=== PATIENT | male | born 1945 | race Caucasian/White ===

== ENCOUNTER 2017-08-18 10:22 | Observation (INO) | payer MEDICARE, MEDICAID ==
--- NOTE | 2017-08-18 10:36 | ER Document Report ---
ED General - General Chief Complaint: Low Blood Pressure Stated Complaint: BLOOD PRESSURE CONCERNS Time Seen by Provider: 08/18/17 10:35 TRAVEL OUTSIDE OF THE [place] IN LAST 30 DAYS: No - HPI Patient complains to provider of: syncope Notes: Old man presents after episode of syncope this morning at his doctor's office. Patient woke up this morning and had the sensation he was going to "pass out" and he was unable to get his vision to focus well in the morning. Patient took a shower felt unsteady was able to shave but still felt very "strange". Patient attempted to drive to his doctor's office but his vision Coming in and out while he was driving. Patient contacted his sister attempting to get a ride. Patient ended up driving slowly stopping periodically and did get to his physician's office. Patient stood up attempted to walk in to his physician's office and he had a syncopal event. Patient found to have systolic blood pressure approximately 60 prehospital. Patient is a small abrasion on his forehead but denies any other pain at this time. Patient states he feels fine at rest. He is not sure if he took too much of his blood pressure medication this morning or what is going on. Denies all other symptoms - Related Data Allergies/Adverse Reactions: No Known Allergies Allergy (Verified 08/18/17 10:34) Past Medical History - Social History Smoking Status: Unknown if Ever Smoked Family History: None - Past Medical History Cardiac Medical History: Reports: Hx Hypertension Pulmonary Medical History: Reports: Hx Pneumonia - possible Musculoskeletal Medical History: Reports Hx Arthritis Psychiatric Medical History: Reports: Hx Depression Past Surgical History: Denies: Hx Pacemaker Review of Systems - Review of Systems Notes: REVIEW OF SYSTEMS: CONSTITUTIONAL: -fevers, -chills EENT: -eye pain, -difficulty swallowing, -nasal congestion CARDIOVASCULAR: -chest pain, -syncope. RESPIRATORY: -cough, -SOB GASTROINTESTINAL: -abdominal pain, -nausea, -vomiting, -diarrhea GENITOURINARY: -dysuria, -hematuria MUSCULOSKELETAL: -back pain, -neck pain SKIN: -rash or skin lesions. HEMATOLOGIC: -easy bruising or bleeding. LYMPHATIC: -swollen, enlarged glands. NEUROLOGICAL: -altered mental status or loss of consciousness, -headache, - neurologic symptoms PSYCHIATRIC: -anxiety, -depression. ALL OTHER SYSTEMS REVIEWED AND NEGATIVE. Physical Exam - Vital signs Vitals: Resp BP Pulse Ox 12 102/67 93 08/18/17 10:29 08/18/17 10:29 08/18/17 10:29 - Notes Notes: PHYSICAL EXAMINATION: GENERAL: Well-appearing, well-nourished and in no acute distress. HEAD: Atraumatic, normocephalic. EYES: Pupils equal round and reactive to light, extraocular movements intact, sclera anicteric, conjunctiva are normal. ENT: nares patent, oropharynx clear without exudates. Moist mucous membranes. NECK: Normal range of motion, supple without lymphadenopathy LUNGS: Breath sounds clear to auscultation bilaterally and equal. No wheezes rales or rhonchi. HEART: Regular rate and rhythm without murmurs ABDOMEN: Soft, nontender, normoactive bowel sounds. No guarding, no rebound. No masses appreciated. EXTREMITIES: Normal range of motion, no pitting or edema. No cyanosis. NEUROLOGICAL: Cranial nerves grossly intact. Normal speech, normal gait. Normal sensory and motor exams. PSYCH: Normal mood, normal affect. SKIN: Small abrasion left aspect frontal bone Course - Re-evaluation Re-evalutation: 08/18/17 10:43 Elderly man presents with hypotension and syncope prehospital. EKG unremarkable at this time. Will initiate multiple lab workup, imaging CT head and chest x-ray. 08/18/17 11:44 Patient's CAT scan unremarkable, chest x-ray unremarkable extensive lab workup unremarkable EKG is no ischemic changes. Patient has no complaints at this time given fluid resuscitation. Patient still borderline hypotension systolic 96. Patient will be admitted to the hospital for definitive management and close monitoring including telemetry. - Vital Signs Vital signs: Temp Pulse Resp BP Pulse Ox 97.9 F 12 89/60 L 93 08/18/17 10:34 08/18/17 11:31 08/18/17 11:31 08/18/17 11:31 - Laboratory Result Diagrams: 08/18/17 10:06 08/18/17 10:06 Laboratory results interpreted by me: 08/18/17 08/18/17 10:06 10:06 WBC 13.7 H Seg Neutrophils % 79.2 H Absolute Neutrophils 10.9 H BUN 36 H Creatinine 2.83 H Est GFR ( Amer) 27 L Est GFR (Non-Af Amer) 22 L Glucose 153 H Direct Bilirubin 0.5 H - EKG Interpretation by Me Additional EKG results interpreted by me: 08/18/17 11:44 Normal sinus rhythm, no ST elevation, no ST depression, no pathologic T-wave inversions. Discharge - Discharge Clinical Impression: Syncope and collapse Hypotension Qualifiers: Hypotension type: unspecified hypotension type Qualified Code(s): I95.9 - Hypotension, unspecified Fall Qualifiers: Encounter type: initial encounter Qualified Code(s): W19.XXXA - Unspecified fall, initial encounter Admitting Provider: Hospitalist - Dr. Kandice Huitron Unit Admitted: Telemetry Referrals: RHONDA PERLA DO [Primary Care Provider] - Follow up as needed
[2017-08-18] MEDS ORDERED: NORMAL SALINE 1000 ML 1,000 ML IV ONE (10:40)
[2017-08-18 10:53] LABS: ABSOLUTE BASOPHILS # (AUTO) 0.1 10^3/uL (0.0-0.2); ABSOLUTE EOSINOPHILS # (AUTO) 0.2 10^3/uL (0.0-0.6); ABSOLUTE LYMPHOCYTES (AUTO) 1.9 10^3/uL (0.5-4.7); ABSOLUTE MONOCYTES (AUTO) 0.7 10^3/uL (0.1-1.4); ABSOLUTE NEUT (AUTO) 10.9 10^3/uL (1.7-8.2); BASOPHILS % (AUTO) 0.4 % (0-2); EOSINOPHILS % (AUTO) 1.4 % (0-6); HEMATOCRIT 39.9 % (37.9-51.0); HEMOGLOBIN 13.5 g/dL (13.5-17.0); LYMPHOCYTES % (AUTO) 13.7 % (13-45); MEAN CORPUSCULAR HEMOGLOBIN 30.5 pg (27.0-33.4); MEAN CORPUSCULAR HGB CONC 33.9 g/dL (32.0-36.0); MEAN CORPUSCULAR VOLUME 90 fl (80-97); MONOCYTES % (AUTO) 5.3 % (3-13); PLATELET COUNT 252 10^3/uL (150-450); RED BLOOD COUNT 4.44 10^6/uL (4.35-5.55); RED CELL DISTRIBUTION WIDTH 12.8 % (11.5-14.0); SEGMENTED NEUTROPHILS % (AUTO) 79.2 % (42-78); TOTAL CELLS COUNTED % (AUTO) 100 %; WHITE BLOOD COUNT 13.7 10^3/uL (4.0-10.5)
[2017-08-18 11:08] LABS: ALANINE AMINOTRANSFERASE 24 U/L (21-72); ALBUMIN 4.2 g/dL (3.5-5.0); ALKALINE PHOSPHATASE 84 U/L (38-126); ANION GAP 15 (5-19); ASPARTATE AMINO TRANSFERASE 31 U/L (17-59); BILIRUBIN,DIRECT 0.5 mg/dL (0.0-0.4); BILIRUBIN,TOTAL 0.8 mg/dL (0.2-1.3); BLOOD UREA NITROGEN 36 mg/dL (7-20); CALCIUM 9.7 mg/dL (8.4-10.2); CARBON DIOXIDE 26 mmol/L (22-30); CHLORIDE 102 mmol/L (98-107); GLUCOSE 153 mg/dL (75-110); POTASSIUM 4.3 mmol/L (3.6-5.0); SODIUM 143.2 mmol/L (137-145); TOTAL PROTEIN 7.5 g/dL (6.3-8.2)
--- NOTE | 2017-08-18 11:14 | RADIOLOGY REPORT (SQ) ---
EXAM DESCRIPTION: CT HEAD WITHOUT COMPLETED DATE/TIME: 08/18/2017 10:57 am REASON FOR STUDY: trauma COMPARISON: December 2011 TECHNIQUE: Axial images acquired through the brain without intravenous contrast. Images reviewed wi th bone, brain and subdural windows. Additional sagittal and coronal reconstructions were generated. Images stored on PACS. All CT scanners at this facility use dose modulation, iterative reconstruction, and/or weight based d osing when appropriate to reduce radiation dose to as low as reasonably achievable (ALARA). [facility]: Dose Right [facility]: CareDose [facility]: Dose Right [facility]: Teradose 4D [facility]: [employer] RADIATION DOSE: CT Rad equipment meets quality standard of care and radiation dose reduction techniq ues were employed. CTDIvol: 53.2 mGy. DLP: 1044 mGy-cm. mGy. LIMITATIONS: None. FINDINGS: VENTRICLES: Normal size and contour. CEREBRUM: No masses. No hemorrhage. No midline shift. No evidence for acute infarction. Normal gra y/white matter differentiation. No areas of low density in the white matter. CEREBELLUM: No masses. No hemorrhage. No alteration of density. No evidence for acute infarction. EXTRAAXIAL SPACES: No fluid collections. No masses. ORBITS AND GLOBE: No intra- or extraconal masses. Normal contour of globe without masses. CALVARIUM: No fracture. PARANASAL SINUSES: No fluid or mucosal thickening. SOFT TISSUES: No mass or hematoma. OTHER: No other significant finding. IMPRESSION: No significant intracranial abnormalities were identified. Findings as noted above EVIDENCE OF ACUTE STROKE: NO. COMMENT: Quality ID # [id number]: Final reports with documentation of one or more dose reduction techniques (e.g., Automated exposure control, adjustment of the mA and/or kV according to patient size, use of iterative reconstruction technique) TECHNICAL DOCUMENTATION: JOB ID: [id number] [email or web address]- All Rights Reserved Reading location - IP/workstation name: [email or web address]
--- NOTE | 2017-08-18 11:47 | RADIOLOGY REPORT (SQ) ---
EXAM DESCRIPTION: CHEST SINGLE VIEW COMPLETED DATE/TIME: 08/18/2017 11:30 am REASON FOR STUDY: syncope COMPARISON: August 2007 EXAM PARAMETERS: NUMBER OF VIEWS: One view. TECHNIQUE: Single frontal radiographic view of the chest acquired. RADIATION DOSE: NA LIMITATIONS: None. FINDINGS: LUNGS AND PLEURA: No opacities, masses or pneumothorax. No pleural effusion. MEDIASTINUM AND HILAR STRUCTURES: No masses. Contour normal. HEART AND VASCULAR STRUCTURES: Heart normal in size. Normal vasculature. BONES: No acute findings. HARDWARE: None in the chest. OTHER: No other significant finding. IMPRESSION: NO ACUTE RADIOGRAPHIC FINDING IN THE CHEST. TECHNICAL DOCUMENTATION: JOB ID: [id number] [email or web address]- All Rights Reserved Reading location - IP/workstation name: [email or web address]
[2017-08-18] MEDS ORDERED: ACETAMINOPHEN 325 MG TABLET PO PRN (12:29)
[2017-08-18] MEDS ORDERED: RINGERS SOLUTION,LACTATED 1,000 ML IV PRN (12:29)
[2017-08-18] MEDS ORDERED: HYDROCODONE/ACETAMINOPHEN 10-325 MG TABLET PO PRN (12:40)
[2017-08-18] MEDS ORDERED: (PENDING PHARMACY ID) (Alprazolam [Xanax 1 Mg Tablet] 1 MG) PO SCH (14:00)
[2017-08-18] MEDS: ALPRAZOLAM 0.5 MG TABLET PO SCH ×2 (15:51→21:39)
[2017-08-18 15:57] LABS: APPEARANCE,URINE CLEAR; BILIRUBIN,URINE NEGATIVE (NEGATIVE); COLOR,URINE YELLOW; GLUCOSE, URINE NEGATIVE (NEGATIVE); KETONES,URINE NEGATIVE (NEGATIVE); LEUKOCYTE ESTERASE,URINE NEGATIVE (NEGATIVE); NITRITE,URINE NEGATIVE (NEGATIVE); PROTEIN,URINE NEGATIVE (NEGATIVE); URINE SPECIFIC GRAVITY 1.011; UROBILINOGEN,URINE NEGATIVE mg/dL (<2.0)
[2017-08-18] MEDS: RINGERS SOLUTION,LACTATED 1,000 ML IV PRN (16:33)
--- NOTE | 2017-08-18 18:48 | PDOC H&P ---
History of Present Illness Admission Date/PCP: 08/18/17 13:16 RHONDA PERLA DO Patient complains of: Syncope, hypotension History of Present Illness: LYNNE CAMPBELL is a 72 year old male who had a syncopal episode in the parking lot of his PCP. The patient states that he has felt dizzy upon standing for the last couple of days. This morning he was very dizzy and a little nauseated. He states that he saw spots in front of his eyes when he stood up. When he went to stand up out of his car he passed out hitting his head. He was found to be hypotensive and was given IV fluids en route. he continued to be hypotensive in the ED. The patient thinks that maybe he took more of his medications than he should have this morning, but he states that he is usually very careful about this. He denies fevers or chills. He states that his appetite has been poor of late and that he hasn't been urinating much, although he thinks that he has been drinking enough. He does have air conditioning in his home. He carries past medical history positive for DM II for which he takes lantus, depression, chronic pain, hypertension for which he takes lisinopril and HCTZ, BPH for which he takes tamsulosin, and hyperlipidemia. Past Medical History Cardiac Medical History: Reports: Hypertension Pulmonary Medical History: Reports: Pneumonia - possible Endocrine Medical History: Reports: Diabetes Mellitus Type 2 - Lantus Renal/ Medical History: Reports: Other - Benign prostatic hypertrophy. Musculoskeltal Medical History: Reports: Arthritis Psychiatric Medical History: Reports: Depression Hematology: Reports: Anemia Infectious Medical History: Reports: None Past Surgical History Past Surgical History: Denies: Pacemaker Social History Smoking Status: Current Every Day Smoker Cigarettes Packs Per Day: 1 Number of Years Smokin Frequency of Alcohol Use: Rare Hx Recreational Drug Use: No Drugs: None Hx Prescription Drug Abuse: No Family History Family History: None Parental Family History Reviewed: Yes Children Family History Reviewed: Yes Sibling(s) Family History Reviewed.: Yes Medication/Allergy Home Medications: Alprazolam [Xanax] 1 mg PO Q8HP PRN 08/18/17 Aspirin [Aspirin EC] 81 mg PO DAILY 08/18/17 Atorvastatin Calcium [Lipitor 20 mg Tablet] 20 mg PO QHS 08/18/17 Clobetasol Propionate [Clobex Shampoo] 1 applic TP DAILYP PRN 08/18/17 Insulin Glargine,Hum.rec.anlog [Leroy Rice] 54 unit SQ QHS 08/18/17 Lisinopril/Hydrochlorothiazide [Lisinopril-Hctz 20-12.5 mg Tab] 2 each PO DAILY 08/18/17 Meloxicam [Mobic] 7.5 mg PO DAILY 08/18/17 Metformin HCl [Glucophage 500 mg Tablet] 500 mg PO BIDBS 08/18/17 Methadone HCl [Dolophine 10 Mg Tablet] 10 mg PO Q8HP PRN 08/18/17 Oxycodone HCl 15 mg PO Q6HP PRN 08/18/17 Promethazine HCl [Phenergan 25 mg Tablet] 25 mg PO Q6HP PRN 08/18/17 Tamsulosin HCl [Flomax 0.4 mg Cap.sr] 0.4 mg PO QPM 08/18/17 Triamcinolone Acetonide [Aristocort 0.1% Cream 15 gm] 1 applic TP TID 08/18/17 Zolpidem Tartrate [Ambien] 10 mg PO HSP PRN 08/18/17 Allergies/Adverse Reactions: No Known Allergies Allergy (Verified 08/18/17 15:24) Review of Systems Constitutional: PRESENT: fatigue, weakness. ABSENT: chills, fever(s), headache( s), weight gain, weight loss Eyes: ABSENT: visual disturbances Ears: ABSENT: hearing changes Nose, Mouth, and Throat: ABSENT: headache(s), sore throat Cardiovascular: ABSENT: chest pain, dyspnea on exertion, palpitations Respiratory: ABSENT: cough, dyspnea, hemoptysis, sputum Gastrointestinal: PRESENT: constipation. ABSENT: abdominal pain, diarrhea, dysphagia, nausea, vomiting Musculoskeletal: PRESENT: other - Chronic pain from arthritis. Integumentary: ABSENT: erythema, lesions, wounds Neurological: PRESENT: dizziness, syncope Psychiatric: PRESENT: depression Endocrine: ABSENT: polydipsia, polyphagia, polyuria Hematologic/Lymphatic: ABSENT: easy bleeding, easy bruising Physical Exam Vital Signs: Temp Pulse Resp BP Pulse Ox 97.5 F 79 12 97/61 L 96 08/18/17 15:28 08/18/17 15:28 08/18/17 15:28 08/18/17 15:28 08/18/17 15:28 General appearance: PRESENT: no acute distress, other Head exam: PRESENT: other - Postive for laceration over left eye. Eye exam: PRESENT: EOMI, PERRLA, other - No scleral injection.. ABSENT: scleral icterus Ear exam: PRESENT: normal external ear exam. ABSENT: bleeding Mouth exam: PRESENT: dry mucosa, neck supple, tongue midline Throat exam: ABSENT: post pharyngeal erythema, tonsillar exudate Neck exam: ABSENT: carotid bruit, lymphadenopathy, tenderness, tracheal deviation Respiratory exam: PRESENT: other - No increaesd work of breathing. No wheezes, rales, or rhonchi. No tactile fremitus. Cardiovascular exam: PRESENT: RRR, other - No lateral PMI. No thrills.. ABSENT : gallop, rubs, systolic murmur Pulses: PRESENT: normal carotid pulses, other - Diminished distal pulses. GI/Abdominal exam: PRESENT: normal bowel sounds, soft. ABSENT: hernia, mass, tenderness Extremities exam: ABSENT: pedal edema, tenderness, +1 edema Neurological exam: PRESENT: alert, altered, awake, oriented to person, oriented to place, oriented to time, oriented to situation, CN II-XII grossly intact. ABSENT: motor sensory deficit Psychiatric exam: PRESENT: appropriate affect, normal mood Skin exam: PRESENT: dry, intact, warm Results Laboratory Results: 08/18/17 15:30 Urine Color YELLOW Urine Appearance CLEAR Urine pH 5.0 Ur Specific [place] 1.011 Urine Protein NEGATIVE Urine Glucose (UA) NEGATIVE Urine Ketones NEGATIVE Urine Blood NEGATIVE Urine Nitrite NEGATIVE Ur Leukocyte Esterase NEGATIVE Urine WBC (Auto) 2 Urine RBC (Auto) 0 08/18/17 14:51 Troponin I < 0.012 Impressions: Chest X-Ray 08/18/17 10:41 IMPRESSION: NO ACUTE RADIOGRAPHIC FINDING IN THE CHEST. Head CT 08/18/17 10:43 IMPRESSION: No significant intracranial abnormalities were identified. Findings as noted above EVIDENCE OF ACUTE STROKE: NO. Assessment & Plan - Diagnosis (1) Diabetes mellitus, type II, insulin dependent Is this a current diagnosis for this admission?: Yes Plan: Continue lantus with FSBS and SSI. Check HbA1c (2) BPH (benign prostatic hyperplasia) Qualifiers: Lower urinary tract symptom presence: symptoms absent Qualified Code(s): N40.0 - Benign prostatic hyperplasia without lower urinary tract symptoms Is this a current diagnosis for this admission?: Yes Plan: Pt takes tamsulosin for this indication and this may have contributed to his hypotension and syncope. (3) Chronic pain Qualifiers: Chronic pain type: chronic pain syndrome Qualified Code(s): G89.4 - Chronic pain syndrome Is this a current diagnosis for this admission?: Yes Plan: Continue methadone and home medications for pain as allowed by blood pressure. (4) Hypotension Qualifiers: Hypotension type: orthostatic hypotension Qualified Code(s): I95.1 - Orthostatic hypotension Is this a current diagnosis for this admission?: Yes Plan: The patient is on multiple medications which may have contributed to hypotension including HCTZ and tamsulosin and his narcotic pain medications. The patient will be given IV fluids and his antihypertensives will be held. His narcotic pain medications will be given with caution. His hypotension is the presumed cause of his syncopal episode. (5) Syncope and collapse Is this a current diagnosis for this admission?: Yes Plan: Almost certainly due to hypotension. IV fluids given and blood pressure meds and diuretics have been held. Will check orthostatic vitals in the morning. - Time Time Spent: 50 to 70 Minutes Medications reviewed and adjusted accordingly: Yes Anticipated discharge: Home Within: within 24 hours Disposition: Home
[2017-08-18] MEDS ORDERED: ALPRAZOLAM 0.5 MG TABLET PO PRN (20:00)
--- NOTE | 2017-08-18 20:37 | EKG REPORT ---
SEVERITY:- OTHERWISE NORMAL ECG - SINUS RHYTHM : Confirmed by: Doreen Garcia MD 18-Aug-2017 20:37:06
[2017-08-18] MEDS: ATORVASTATIN CALCIUM 20 MG TABLET PO SCH (21:40)
[2017-08-18] MEDS: TRIAMCINOLONE ACETONIDE 0.1% CREAM 15 GM TOP SCH (21:40)
[2017-08-18] MEDS: INSULIN GLARGINE,HUM.REC.ANLOG 300 UNIT/3 ML INSULN.PEN SUBCUT SCH (21:43)
[2017-08-18] MEDS: SERTRALINE HCL 50 MG TABLET PO SCH (21:48)
[2017-08-18] MEDS: METHADONE HCL 10 MG TABLET PO PRN (21:52)
[2017-08-18] MEDS ORDERED: INSULIN GLARGINE HUM REC ANLOG 54 UNIT SQ SCH (22:00)
[2017-08-19 03:28] LABS: ABSOLUTE EOSINOPHILS # (AUTO) 0.4 10^3/uL (0.0-0.6); ABSOLUTE LYMPHOCYTES (AUTO) 2.6 10^3/uL (0.5-4.7); ABSOLUTE MONOCYTES (AUTO) 0.6 10^3/uL (0.1-1.4); ABSOLUTE NEUT (AUTO) 5.3 10^3/uL (1.7-8.2); BASOPHILS % (AUTO) 0.4 % (0-2); HEMATOCRIT 34.5 % (37.9-51.0); HEMOGLOBIN 11.9 g/dL (13.5-17.0); LYMPHOCYTES % (AUTO) 29.2 % (13-45); MEAN CORPUSCULAR HEMOGLOBIN 30.9 pg (27.0-33.4); MEAN CORPUSCULAR HGB CONC 34.6 g/dL (32.0-36.0); MEAN CORPUSCULAR VOLUME 90 fl (80-97); PLATELET COUNT 194 10^3/uL (150-450); RED BLOOD COUNT 3.86 10^6/uL (4.35-5.55); RED CELL DISTRIBUTION WIDTH 12.8 % (11.5-14.0); SEGMENTED NEUTROPHILS % (AUTO) 59.4 % (42-78); TOTAL CELLS COUNTED % (AUTO) 100 %; WHITE BLOOD COUNT 8.8 10^3/uL (4.0-10.5)
[2017-08-19 03:43] LABS: ALANINE AMINOTRANSFERASE 22 U/L (21-72); ALBUMIN 3.3 g/dL (3.5-5.0); ALKALINE PHOSPHATASE 61 U/L (38-126); ANION GAP 9 (5-19); ASPARTATE AMINO TRANSFERASE 30 U/L (17-59); BILIRUBIN,DIRECT 0.3 mg/dL (0.0-0.4); BILIRUBIN,TOTAL 0.5 mg/dL (0.2-1.3); BLOOD UREA NITROGEN 38 mg/dL (7-20); CALCIUM 8.7 mg/dL (8.4-10.2); CARBON DIOXIDE 28 mmol/L (22-30); CHLORIDE 107 mmol/L (98-107); GLUCOSE 101 mg/dL (75-110); PHOSPHORUS 4.3 mg/dL (2.5-4.5); POTASSIUM 4.4 mmol/L (3.6-5.0); SODIUM 143.8 mmol/L (137-145)
[2017-08-19 03:58] LABS: FREE T3 3.22 pg/mL (2.77-5.27); FREE T4 (FREE THYROXINE) 1.17 ng/dL (0.78-2.19)
[2017-08-19 04:12] LABS: THYROID STIMULATING HORMONE 0.83 uIU/mL (0.47-4.68)
[2017-08-19] MEDS: TRIAMCINOLONE ACETONIDE 0.1% CREAM 15 GM TOP SCH ×3 (06:15→23:09)
[2017-08-19] MEDS: ALPRAZOLAM 0.5 MG TABLET PO SCH ×3 (06:57→23:07)
[2017-08-19] MEDS: RINGERS SOLUTION,LACTATED 1,000 ML IV PRN ×2 (07:48→20:12)
[2017-08-19] MEDS: MONTELUKAST SODIUM 10 MG TABLET PO SCH (09:49)
[2017-08-19] MEDS: ASPIRIN 81 MG TABLET, ENT COATED PO SCH (09:50)
[2017-08-19] MEDS: SERTRALINE HCL 50 MG TABLET PO SCH ×2 (09:51→22:32)
[2017-08-19] MEDS ORDERED: NORMAL SALINE 1000 ML 500 ML IV PRN (14:24)
--- NOTE | 2017-08-19 17:57 | PDOC PROGRESS REPORT ---
Subjective Progress Note for:: 08/19/17 Subjective:: The patient states that he feels well. No new complaints. Reason For Visit: SYNCOPE,HYPOTENSION,DIZZINESS Physical Exam Vital Signs: Temp Pulse Resp BP Pulse Ox 97.4 F 62 16 107/65 96 08/19/17 16:00 08/19/17 16:00 08/19/17 16:00 08/19/17 16:00 08/19/17 16:00 Intake & Output 08/18/17 08/19/17 08/20/17 06:59 06:59 06:59 Intake Total 2075 473 Output Total 0 1900 Balance 2074 -1427 Weight 90.1 kg General appearance: PRESENT: no acute distress, well-developed, well-nourished Respiratory exam: PRESENT: other - No increased work of breathing. No wheezes, rales, or rhonchi.. ABSENT: rales, rhonchi, wheezes Cardiovascular exam: PRESENT: RRR. ABSENT: gallop, rubs, systolic murmur Pulses: PRESENT: other - diminished distal pulses GI/Abdominal exam: PRESENT: normal bowel sounds, soft. ABSENT: distended, mass , organolmegaly, tenderness Musculoskeletal exam: PRESENT: full ROM, normal inspection. ABSENT: deformity, tenderness Neurological exam: PRESENT: alert, awake, oriented to person, oriented to place , oriented to time, oriented to situation, CN II-XII grossly intact. ABSENT: motor sensory deficit Psychiatric exam: PRESENT: appropriate affect, normal mood Skin exam: PRESENT: dry, intact, warm Additional comments: Orthostatic vitals performed this afternoon remain positive. Results Laboratory Results: 08/19/17 03:03 08/19/17 03:03 08/19/17 08/19/17 08/19/17 03:03 03:03 03:03 WBC 8.8 RBC 3.86 L Hgb 11.9 L Hct 34.5 L MCV 90 MCH 30.9 MCHC 34.6 RDW 12.8 Plt Count 194 Seg Neutrophils % 59.4 Lymphocytes % 29.2 Monocytes % 7.0 Eosinophils % 4.0 Basophils % 0.4 Absolute Neutrophils 5.3 Absolute Lymphocytes 2.6 Absolute Monocytes 0.6 Absolute Eosinophils 0.4 Absolute Basophils 0.0 Sodium 143.8 Potassium 4.4 Chloride 107 Carbon Dioxide 28 Anion Gap 9 BUN 38 H Creatinine 2.25 H Est GFR ( Amer) 35 L Est GFR (Non-Af Amer) 29 L Glucose 101 Calcium 8.7 Phosphorus 4.3 Magnesium 1.5 L Total Bilirubin 0.5 AST 30 ALT 22 Alkaline Phosphatase 61 Total Protein 6.0 L Albumin 3.3 L TSH 0.83 Free T4 1.17 Free T3 pg/mL 3.22 08/18/17 08/18/17 08/19/17 14:51 20:50 03:03 Troponin I < 0.012 < 0.012 < 0.012 Impressions: Chest X-Ray 08/18/17 10:41 IMPRESSION: NO ACUTE RADIOGRAPHIC FINDING IN THE CHEST. Head CT 08/18/17 10:43 IMPRESSION: No significant intracranial abnormalities were identified. Findings as noted above EVIDENCE OF ACUTE STROKE: NO. Assessment & Plan - Diagnosis (1) Diabetes mellitus, type II, insulin dependent Is this a current diagnosis for this admission?: Yes (2) BPH (benign prostatic hyperplasia) Qualifiers: Lower urinary tract symptom presence: symptoms absent Qualified Code(s): N40.0 - Benign prostatic hyperplasia without lower urinary tract symptoms Is this a current diagnosis for this admission?: Yes (3) Chronic pain Qualifiers: Chronic pain type: chronic pain syndrome Qualified Code(s): G89.4 - Chronic pain syndrome Is this a current diagnosis for this admission?: Yes (4) Hypotension Qualifiers: Hypotension type: orthostatic hypotension Qualified Code(s): I95.1 - Orthostatic hypotension Is this a current diagnosis for this admission?: Yes Plan: The patient remains orthostatic. I have given him another bolus and will wait on discharge until tomorrow. (5) Syncope and collapse Is this a current diagnosis for this admission?: Yes Plan: Due to orthostatic hypotension. Although blood pressures are improved, the patient remains orthostatic. The patient will receive another bolus and continue IVF overnight. - Time Time Spent with patient: 35 or more minutes Anticipated discharge: Home Within: within 24 hours
[2017-08-19] MEDS: INSULIN GLARGINE,HUM.REC.ANLOG 300 UNIT/3 ML INSULN.PEN SUBCUT SCH (23:07)
[2017-08-19] MEDS: ATORVASTATIN CALCIUM 20 MG TABLET PO SCH (23:07)
[2017-08-20 05:15] LABS: ABSOLUTE EOSINOPHILS # (AUTO) 0.4 10^3/uL (0.0-0.6); ABSOLUTE LYMPHOCYTES (AUTO) 2.7 10^3/uL (0.5-4.7); ABSOLUTE MONOCYTES (AUTO) 0.6 10^3/uL (0.1-1.4); ABSOLUTE NEUT (AUTO) 4.6 10^3/uL (1.7-8.2); BASOPHILS % (AUTO) 0.6 % (0-2); EOSINOPHILS % (AUTO) 5.1 % (0-6); HEMATOCRIT 35.3 % (37.9-51.0); HEMOGLOBIN 12.3 g/dL (13.5-17.0); LYMPHOCYTES % (AUTO) 31.8 % (13-45); MEAN CORPUSCULAR HEMOGLOBIN 31.1 pg (27.0-33.4); MEAN CORPUSCULAR HGB CONC 34.8 g/dL (32.0-36.0); MEAN CORPUSCULAR VOLUME 90 fl (80-97); MONOCYTES % (AUTO) 7.6 % (3-13); PLATELET COUNT 183 10^3/uL (150-450); RED BLOOD COUNT 3.94 10^6/uL (4.35-5.55); RED CELL DISTRIBUTION WIDTH 13.1 % (11.5-14.0); SEGMENTED NEUTROPHILS % (AUTO) 54.9 % (42-78); TOTAL CELLS COUNTED % (AUTO) 100 %; WHITE BLOOD COUNT 8.4 10^3/uL (4.0-10.5)
[2017-08-20] MEDS: TRIAMCINOLONE ACETONIDE 0.1% CREAM 15 GM TOP SCH ×3 (05:28→22:46)
[2017-08-20 05:32] LABS: ANION GAP 9 (5-19); BLOOD UREA NITROGEN 31 mg/dL (7-20); CALCIUM 8.6 mg/dL (8.4-10.2); CARBON DIOXIDE 27 mmol/L (22-30); CHLORIDE 108 mmol/L (98-107); GLUCOSE 59 mg/dL (75-110); POTASSIUM 4.3 mmol/L (3.6-5.0); SODIUM 143.9 mmol/L (137-145)
[2017-08-20] MEDS: ALPRAZOLAM 0.5 MG TABLET PO SCH ×3 (05:36→22:42)
[2017-08-20] MEDS: RINGERS SOLUTION,LACTATED 1,000 ML IV PRN ×3 (05:36→22:43)
[2017-08-20] MEDS: ASPIRIN 81 MG TABLET, ENT COATED PO SCH (09:38)
[2017-08-20] MEDS: MONTELUKAST SODIUM 10 MG TABLET PO SCH (09:38)
[2017-08-20] MEDS: METHADONE HCL 10 MG TABLET PO PRN ×2 (09:39→17:31)
[2017-08-20] MEDS: SERTRALINE HCL 50 MG TABLET PO SCH ×2 (09:41→22:42)
--- NOTE | 2017-08-20 18:27 | PDOC PROGRESS REPORT ---
Subjective Progress Note for:: 08/20/17 Subjective:: The patient is without new complaints. Reason For Visit: SYNCOPE,HYPOTENSION,DIZZINESS Physical Exam Vital Signs: Temp Pulse Resp BP Pulse Ox 97.2 F 60 16 115/65 98 08/20/17 15:29 08/20/17 15:29 08/20/17 15:29 08/20/17 15:29 08/20/17 15:29 Intake & Output 08/19/17 08/20/17 08/21/17 06:59 06:59 06:59 Intake Total 2075 4373 Output Total 0 4250 Balance 2075 123 Weight 90.1 kg 90.2 kg General appearance: PRESENT: no acute distress, well-developed, well-nourished Respiratory exam: PRESENT: other - No increased work of breathing.. ABSENT: rales, rhonchi, wheezes Cardiovascular exam: PRESENT: RRR, other - No lateral PMI. No thrills.. ABSENT : gallop, rubs, systolic murmur Pulses: PRESENT: other - Diminished distal pulses. GI/Abdominal exam: PRESENT: normal bowel sounds, soft. ABSENT: hernia, mass, Alberto's sign, organolmegaly, tenderness Extremities exam: ABSENT: clubbing, tenderness, +1 edema Neurological exam: PRESENT: alert, altered, awake, oriented to person, CN II- XII grossly intact. ABSENT: motor sensory deficit Psychiatric exam: PRESENT: appropriate affect, normal mood Skin exam: PRESENT: dry, intact, warm Results Laboratory Results: 08/20/17 04:45 08/20/17 04:45 08/20/17 08/20/17 04:45 04:45 WBC 8.4 RBC 3.94 L Hgb 12.3 L Hct 35.3 L MCV 90 MCH 31.1 MCHC 34.8 RDW 13.1 Plt Count 183 Seg Neutrophils % 54.9 Lymphocytes % 31.8 Monocytes % 7.6 Eosinophils % 5.1 Basophils % 0.6 Absolute Neutrophils 4.6 Absolute Lymphocytes 2.7 Absolute Monocytes 0.6 Absolute Eosinophils 0.4 Absolute Basophils 0.0 Sodium 143.9 Potassium 4.3 Chloride 108 H Carbon Dioxide 27 Anion Gap 9 BUN 31 H Creatinine 1.60 H Est GFR ( Amer) 52 L Est GFR (Non-Af Amer) 43 L Glucose 59 L Calcium 8.6 0708/18/17 08/19/17 14:51 20:50 03:03 Troponin I < 0.012 < 0.012 < 0.012 Impressions: Chest X-Ray 08/18/17 10:41 IMPRESSION: NO ACUTE RADIOGRAPHIC FINDING IN THE CHEST. Head CT 08/18/17 10:43 IMPRESSION: No significant intracranial abnormalities were identified. Findings as noted above EVIDENCE OF ACUTE STROKE: NO. Assessment & Plan - Diagnosis (1) Diabetes mellitus, type II, insulin dependent Is this a current diagnosis for this admission?: Yes Plan: Continue lantus with FSBS and SSI. Check HbA1c (2) BPH (benign prostatic hyperplasia) Qualifiers: Lower urinary tract symptom presence: symptoms absent Qualified Code(s): N40.0 - Benign prostatic hyperplasia without lower urinary tract symptoms Is this a current diagnosis for this admission?: Yes Plan: Pt takes tamsulosin for this indication and this may have contributed to his hypotension and syncope. It is being held. (3) Chronic pain Qualifiers: Chronic pain type: chronic pain syndrome Qualified Code(s): G89.4 - Chronic pain syndrome Is this a current diagnosis for this admission?: Yes Plan: Continue methadone and home medications for pain as allowed by blood pressure. (4) Hypotension Qualifiers: Hypotension type: orthostatic hypotension Qualified Code(s): I95.1 - Orthostatic hypotension Is this a current diagnosis for this admission?: Yes Plan: The patient remains orthostatic. I have given him another bolus and will wait on discharge until tomorrow. (5) Syncope and collapse Is this a current diagnosis for this admission?: Yes Plan: Due to orthostatic hypotension. Although blood pressures are improved, the patient remains orthostatic. Continue IV fluids. (6) CHRISTIAN (acute kidney injury) Is this a current diagnosis for this admission?: Yes Plan: Present on admission. Improved with IV fluids, but creatinine remains elevated. Continue IV fluids. - Time Time Spent with patient: 35 or more minutes Medications reviewed and adjusted accordingly: Yes Anticipated discharge: Home
[2017-08-20] MEDS: ATORVASTATIN CALCIUM 20 MG TABLET PO SCH (22:41)
[2017-08-21] MEDS: INSULIN GLARGINE,HUM.REC.ANLOG 300 UNIT/3 ML INSULN.PEN SUBCUT SCH (03:49)
[2017-08-21] MEDS: RINGERS SOLUTION,LACTATED 1,000 ML IV PRN (06:25)
[2017-08-21] MEDS: TRIAMCINOLONE ACETONIDE 0.1% CREAM 15 GM TOP SCH (06:25)
[2017-08-21] MEDS: ALPRAZOLAM 0.5 MG TABLET PO SCH (06:25)
[2017-08-21 06:58] LABS: ALANINE AMINOTRANSFERASE 17 U/L (21-72); ALBUMIN 3.1 g/dL (3.5-5.0); ALKALINE PHOSPHATASE 61 U/L (38-126); ANION GAP 11 (5-19); ASPARTATE AMINO TRANSFERASE 26 U/L (17-59); BILIRUBIN,DIRECT 0.3 mg/dL (0.0-0.4); BILIRUBIN,TOTAL 0.4 mg/dL (0.2-1.3); BLOOD UREA NITROGEN 27 mg/dL (7-20); CALCIUM 8.6 mg/dL (8.4-10.2); CARBON DIOXIDE 27 mmol/L (22-30); CHLORIDE 106 mmol/L (98-107); GLUCOSE 98 mg/dL (75-110); POTASSIUM 4.4 mmol/L (3.6-5.0); SODIUM 143.8 mmol/L (137-145); TOTAL PROTEIN 5.8 g/dL (6.3-8.2)
[2017-08-21] MEDS: ASPIRIN 81 MG TABLET, ENT COATED PO SCH (09:33)
[2017-08-21] MEDS: MONTELUKAST SODIUM 10 MG TABLET PO SCH (09:34)
[2017-08-21] MEDS: METHADONE HCL 10 MG TABLET PO PRN (09:34)
[2017-08-21] MEDS: SERTRALINE HCL 50 MG TABLET PO SCH (09:34)
[2017-08-21 13:50] VITALS: BP 116/62
--- NOTE | 2017-08-21 14:10 | PDOC DISCHARGE SUMMARY ---
General - Admit/Disc Date/PCP Admission Date/Primary Care Provider: 08/18/17 13:16 RHONDA PAN, Discharge Date: 08/21/17 - Discharge Diagnosis (1) Diabetes mellitus, type II, insulin dependent Is this a current diagnosis for this admission?: Yes (2) BPH (benign prostatic hyperplasia) Is this a current diagnosis for this admission?: Yes (3) Chronic pain Is this a current diagnosis for this admission?: Yes (4) Hypotension Is this a current diagnosis for this admission?: Yes (5) Syncope and collapse Is this a current diagnosis for this admission?: Yes (6) CHRISTIAN (acute kidney injury) Is this a current diagnosis for this admission?: Yes - Additional Information Discharge Diet: Diabetic Discharge Activity: Activity As Tolerated, No Driving Prescriptions: Insulin Detemir [Levemir Flextouch] 100 unit SQ QHS #15 insuln.pen Home Medications: Alprazolam [Xanax] 1 mg PO Q8HP PRN 08/18/17 Aspirin [Aspirin EC] 81 mg PO DAILY 08/18/17 Atorvastatin Calcium [Lipitor 20 mg Tablet] 20 mg PO QHS 08/18/17 Clobetasol Propionate [Clobex Shampoo] 1 applic TP DAILYP PRN 08/18/17 Methadone HCl [Dolophine 10 mg Tablet] 10 mg PO Q8HP PRN 08/18/17 Oxycodone HCl 15 mg PO Q6HP PRN 08/18/17 Promethazine HCl [Phenergan 25 mg Tablet] 25 mg PO Q6HP PRN 08/18/17 Triamcinolone Acetonide [Aristocort 0.1% Cream] 1 applic TP TID 08/18/17 Insulin Detemir [Levemir Flextouch] 100 unit SQ QHS #15 insuln.pen 08/21/17 Montelukast Sodium [Singulair 10 mg Tablet] 10 mg PO DAILY tablet 08/21/17 Sertraline HCl [Zoloft 50 mg Tablet] 50 mg PO Q12 tablet 08/21/17 History of Present Illness History of Present Illness: LYNNE CAMPBELL is a 72 year old male who had a syncopal episode in the parking lot of his PCP. The patient states that he has felt dizzy upon standing for the last couple of days. This morning he was very dizzy and a little nauseated. He states that he saw spots in front of his eyes when he stood up. When he went to stand up out of his car he passed out hitting his head. He was found to be hypotensive and was given IV fluids en route. he continued to be hypotensive in the ED. The patient thinks that maybe he took more of his medications than he should have this morning, but he states that he is usually very careful about this. He denies fevers or chills. He states that his appetite has been poor of late and that he hasn't been urinating much, although he thinks that he has been drinking enough. He does have air conditioning in his home. He carries past medical history positive for DM II for which he takes lantus, depression, chronic pain, hypertension for which he takes lisinopril and HCTZ, BPH for which he takes tamsulosin, and hyperlipidemia. Hospital Course Hospital Course: The patient was admitted to a telemetry bed. His antihypertensives were held. He was given aggressive IV fluids. His orthostatic and renal function was followed. His orthostatic hypotension has resolved. The patient will be discharged to home in fair condition. I have stopped his antihypertensives. I have also cut his lantus quite a bit as he has required very little insulin as inpatient. He will be sent home on 15 units of Lantus daily. He will need to follow up with his PCP within a week and to have a chemistry checked at that visit. He will be followed with home health for vitals and med checks at home. Physical Exam Vital Signs: Temp Pulse Resp BP Pulse Ox 97.5 F 49 L 20 116/62 97 08/21/17 13:48 08/21/17 13:48 08/21/17 13:48 08/21/17 13:48 08/21/17 13:48 Intake & Output 08/20/17 08/21/17 08/22/17 06:59 06:59 06:59 Intake Total 4373 4427 Output Total 4700 1550 Balance 123 2877 Weight 90.2 kg 93.25 kg General appearance: PRESENT: no acute distress Respiratory exam: PRESENT: other - No increased work of breathing. No tactile fremitus.. ABSENT: rales, rhonchi, wheezes Cardiovascular exam: PRESENT: RRR, other - No lateral PMI. No thrills.. ABSENT : gallop, rubs, systolic murmur, tachycardia Pulses: PRESENT: other - Dimished distal pulses. GI/Abdominal exam: PRESENT: normal bowel sounds, soft. ABSENT: distended, hernia, mass, tenderness Extremities exam: ABSENT: clubbing, tenderness, +1 edema Skin exam: PRESENT: dry, intact, warm Results Laboratory Results: 08/20/17 04:45 08/21/17 06:19 08/21/17 06:19 Sodium 143.8 Potassium 4.4 Chloride 106 Carbon Dioxide 27 Anion Gap 11 BUN 27 H Creatinine 1.50 H Est GFR ( Amer) 56 L Est GFR (Non-Af Amer) 46 L Glucose 98 Calcium 8.6 Total Bilirubin 0.4 AST 26 ALT 17 L Alkaline Phosphatase 61 Total Protein 5.8 L Albumin 3.1 L 08/18/17 08/18/17 08/19/17 14:51 20:50 03:03 Troponin I < 0.012 < 0.012 < 0.012 Impressions: Chest X-Ray 08/18/17 10:41 IMPRESSION: NO ACUTE RADIOGRAPHIC FINDING IN THE CHEST. Head CT 08/18/17 10:43 IMPRESSION: No significant intracranial abnormalities were identified. Findings as noted above EVIDENCE OF ACUTE STROKE: NO. Qualifiers - * PATIENT BEING DISCHARGED WITH ANY OF THE FOLLOWING DIAGNOSIS: No Plan Time Spent: Greater than 30 Minutes
== END 2017-08-21 13:45 | disposition home or self-care (01) ==
LOC: ER 10:22 → EH 13:16 → 4N 15:12
PROVIDERS: ADMIT Internal Medicine; ATTEND Internal Medicine
DX: I95.1 Orthostatic hypotension (principal); E11.9 Type 2 diabetes mellitus without complications; N40.0 Benign prostatic hyperplasia without lower urinary tract symptoms; N17.9 Acute kidney failure, unspecified; I10 Essential (primary) hypertension; E78.5 Hyperlipidemia, unspecified; F17.210 Nicotine dependence, cigarettes, uncomplicated; K59.00 Constipation, unspecified; F32.9 Major depressive disorder, single episode, unspecified; G89.4 Chronic pain syndrome; M19.90 Unspecified osteoarthritis, unspecified site; S00.81XA Abrasion of other part of head, initial encounter; W19.XXXA Unspecified fall, initial encounter; Y92.481 Parking lot as the place of occurrence of the external cause; Z79.899 Other long term (current) drug therapy; Z79.4 Long term (current) use of insulin; Z79.82 Long term (current) use of aspirin; Z79.891 Long term (current) use of opiate analgesic
CPT/HCPCS: 93005; 99285; 96360; 36415 ×4; 84439; 82962 ×4; 83735; 84100; 84443; 85025 ×3; 80076; 80048 ×2; 80053 ×2; 81001; 84484 ×2; 84481; 71045; 70450; 93010; G0378 ×5; A9270 ×14; J3490; J7030 ×2; J7120 ×4; J1815